=== PATIENT | female | born 1965 | race Caucasian/White ===

== ENCOUNTER 2020-03-01 13:21 | Outpatient (REF) | payer OTHER, SELFPAY | END 2020-03-01 13:22 | disposition home or self-care (01) | LOC: HO.LAB 13:21 | PROVIDERS: Visit Provider Internal Medicine | DX: Z20.828 Contact with and (suspected) exposure to other viral communicable diseases (principal) | CPT/HCPCS: C9803; U0003 ==

== ENCOUNTER 2020-05-22 08:30 | Emergency (ER) | payer OTHER, SELFPAY ==
--- NOTE | ~2020-05-22 | XR_ITS ---
EXAMINATION: XR TOES, RIGHT CLINICAL INFORMATION: Pain post fall COMPARISON: None TECHNIQUE: 3 views of the right great toe were obtained. FINDINGS: There is a nondisplaced fracture of the lateral distal phalanx of the great toe intra-articular with the IP joint. No other fracture is seen. Joint spaces are otherwise normal. Soft tissues are normal. XR/XR toe RT min 2V IMPRESSION: Nondisplaced fracture of the lateral distal phalanx of the great toe intra-articular with the IP joint.
[2020-05-22 08:33] VITALS: BP 148/91; PULSE 79; RESP 18; TEMP 36.6; O2SAT 99; BMI 24.3
--- NOTE | 2020-05-22 09:10 | ED_ITS ---
HPI - Fall General Chief Complaint: Fall <EBEN Pelaez - Last Filed: 05/22/20 10:06> Stated Complaint: fall - toe injury - work related <EBEN Pelaez - Last Filed: 05/22/20 10:06> Time Seen by Provider: 05/22/20 08:58 <EBEN Pelaez - Last Filed: 05/22/20 10:06> Source: patient <EBEN Pelaez - Last Filed: 05/22/20 10:06> Mode of arrival: ambulatory <EBEN Pelaez - Last Filed: 05/22/20 10:06> Limitations: no limitations <EBEN Pelaez - Last Filed: 05/22/20 10:06> History of Present Illness HPI Narrative: 55 y/o female presenting with right great toe pain after she slipped and fell outside on her way into work. She thinks she kicked a curb causing her to fall. No dizziness prior to fall. No LOC or head strike. No other injuries. She is able to ambulate but with some discomfort. <EBEN Pelaez - Last Filed: 05/22/20 10:06> MD complaint: fall <EBEN Pelaez - Last Filed: 05/22/20 10:06> Onset (ago): hour(s) (1) <EBEN Pelaez - Last Filed: 05/22/20 10:06> Fall from: standing <EBEN Pelaez - Last Filed: 05/22/20 10:06> Fall witnessed: yes, by bystander <EBEN Pelaez - Last Filed: 05/22/20 10:06> Place fall occurred: work <EBEN Pelaez - Last Filed: 05/22/20 10:06> Loss of consciousness: none <EBEN Pelaez - Last Filed: 05/22/20 10:06> Prolonged down time: no <EBEN Pelaez - Last Filed: 05/22/20 10:06> Symptoms prior to fall: none <EBEN Pelaez - Last Filed: 05/22/20 10:06> Context: tripped/slipped <EBEN Pelaez Last Filed: 05/22/20 10:06> Location of injury - extremities: right: foot (great toe) <EBEN Pelaez Last Filed: 05/22/20 10:06> Severity: moderate <EBEN Pelaez Last Filed: 05/22/20 10:06> Quality: sharp and aching <EBEN Pelaez Last Filed: 05/22/20 10:06> Associated symptoms (after fall): denies <EBEN Pelaez - Last Filed: 05/22/20 10:06> Related Data Home Medications: Previous Rx's Medication Instructions Recorded ibuprofen 600 mg PO Q8H PRN #20 tab 05/22/20 <EBEN Pelaez Last Filed: 05/22/20 10:06> Allergies/Adverse Reactions: Allergies Allergy/AdvReac Type Severity Reaction Status Date / Time Penicillins [PENICILLINS] Allergy Mild HIVES Unverified 12/14/19 16:16 penicillin V Allergy Unknown hives Unverified 01/03/18 00:00 <EBEN Pelaez Last Filed: 05/22/20 10:06> Review of Systems Review of Systems: Constitutional: No Fever, No Chills Cardiovascular: No Chest Pain, No SOB Respiratory: No Cough, No Sputum Gastrointestinal: No Nausea, No Vomiting, No Diarrhea, No abdominal Pain Musculoskeletal: + joint pain, No Myalgias Skin: No Skin Lesions, No rash Neuro: No Weakness, No Numbness, No Dizziness, No Headache Heme/Lymph: No Bruising, No Lymphadenopathy <EBEN Pelaez Last Filed: 05/22/20 10:06> [facility] Past Medical History Attestation statement: The following information was validated with the patient. 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 Oriented X3. No acute distress. HEENT: normal inspection CVS: Normal heart rate and rhythm. Pulses normal. Respiratory: No respiratory distress. Skin: Skin warm and dry. Normal skin color. Normal skin turgor. No rashes. Extremities: right foot with normal inspection, right great toe with painful flexion, no ecchymosis or deformity. NV intact distally. Neuro: Oriented X 3. No motor deficit. No sensory deficit. <EBEN Pelaez - Last Filed: 05/22/20 10:06> Vital Signs: Last Vital Signs Temp 98 F 05/22/20 08:33 Pulse 79 05/22/20 08:33 Resp 18 05/22/20 08:33 BP 148/91 H 05/22/20 08:33 Pulse Ox 99 05/22/20 08:33 Body Mass Index 24.3 <Mejia Garcia MD - Last Filed: 06/11/20 07:19> Course Course Course Narrative: Right great toe pain after mechanical fall. XR showing fracture. Placed in walking post-op shoe and she is comfortable and can ambulate well. Will have her f/u with Ortho. Stable for d/c. <EBEN Pelaez - Last Filed: 05/22/20 10:06> I have reviewed the chart <Mejia Garcia MD - Last Filed: 06/11/20 07:19> Discharge Plan Discharge Clinical Impression: Fracture of toe, closed <EBEN Pelaez - Last Filed: 05/22/20 10:06> Patient Disposition: Home, Self-Care <EBEN Pelaez - Last Filed: 05/22/20 10:06> Instructions: Toe Fracture (ED) <EBEN Pelaez - Last Filed: 05/22/20 10:06> Additional Instructions: You may bear weight as tolerated. Rest, ice and elevate your foot when possible. Follow up with Orthopedics. <EBEN Pelaez - Last Filed: 05/22/20 10:06> Prescriptions: New ibuprofen 600 mg tablet 600 mg PO Q8H PRN (Reason: pain) Qty: 20 RF: 0 <EBEN Pelaez - Last Filed: 05/22/20 10:06> Referrals: [facility] [Provider Group] - 2 days Jose Guadalupe Cortez MD [Physician] - 2 days (great toe fracture intra-articular w/ IP joint) <EBEN Pelaez - Last Filed: 05/22/20 10:06> Stand Alone Forms: Work/School Release <EBEN Pelaez - Last Filed: 05/22/20 10:06> Interventions: ED Discharge Assessment Last Done: 05/22/20 10:23 <EBEN Pelaez - Last Filed: 05/22/20 10:06> Discharge Date/Time: 05/22/20 10:25 <EBEN Pelaez - Last Filed: 05/22/20 10:06>
== END 2020-05-22 10:25 | disposition home or self-care (01) ==
PROVIDERS: Emergency Provider Emergency Medicine; PCP Physician Assistant
DX: S92.424A Nondisplaced fracture of distal phalanx of right great toe, initial encounter for closed fracture (principal); W01.198A Fall on same level from slipping, tripping and stumbling with subsequent striking against other object, initial encounter; Y93.01 Activity, walking, marching and hiking; Y92.9 Unspecified place or not applicable; Y99.0 Civilian activity done for income or pay
CPT/HCPCS: 73660; 99283

== ENCOUNTER → 2020-05-23 12:43 | Outpatient (BNVA) | payer OTHER, SELFPAY | PROVIDERS: PCP Physician Assistant; Visit Provider Physician Assistant | DX: Z13.89 Encounter for screening for other disorder (principal) | CPT/HCPCS: 99202 ==

== ENCOUNTER 2022-12-14 16:08 | Outpatient (REF) | payer OTHER, SELFPAY ==
[2022-12-14 17:36] LABS: MANUAL DIFF FLAG NO
[2022-12-14 17:43] LABS: Basophils Percent Auto 0.7 % (0-2); Eosinophils Absolute Auto 0.1 X10*3/uL (0.0-0.4); Eosinophils Percent Auto 2.2 % (0-4); Hematocrit 38.8 % (37.0-47.0); Hemoglobin 12.4 g/dl (12.0-16.0); Imm Gran Abs Auto 0.03 X10*3/uL (0.00-0.03); Imm Gran Pct Auto 0.5 % (0.0-0.4); Lymphocytes Absolute Auto 2.1 X10*3/uL (1.2-4.9); Lymphocytes Percent Auto 37.5 % (20-40); Mean Corpuscular Hemoglobin 29.5 pg (27.0-33.0); Mean Corpuscular Volume 92.4 fL (80.0-98.0); Mean Platelet Volume 10.1 fL (9.4-12.3); Monocytes Absolute Auto 0.4 X10*3/uL (0.1-1.2); Monocytes Percent Auto 7.3 % (2-11); Neutrophils Absolute Auto 2.8 x10*3/uL (2.0-8.3); Neutrophils Percent Auto 51.8 % (45-73); Platelet Count 264 X10*3/uL (160-400); Red Cell Distribution Width 13.2 % (11.0-16.0); White Blood Count 5.5 X10*3/uL (4.8-10.8)
[2022-12-14 18:38] LABS: Alanine Aminotransferase 14 U/L (0-31); Albumin Level 4.2 g/dL (3.5-5.0); Alkaline Phosphatase 74 U/L (39-117); Anion Gap 11 (12-20); Aspartate Amino Transferase 21 U/L (5-31); Bilirubin Total 0.1 mg/dL (0.0-1.0); Blood Urea Nitrogen 24 mg/dL (9-16); C Reactive Protein 0.13 mg/dL (< or = 0.50); Calcium 9.2 mg/dL (8.4-10.2); Carbon Dioxide 27 mmol/L (22-29); Chloride 105 mmol/L (96-108); Estimated Glomerular Filt Rate > 60; Glucose Random 82 mg/dL (60-115); Iron 53 mcg/dL (30-160); Percent Iron Saturation 20 % (15-50); Sodium 139 mmol/L (135-145); Total Iron Binding Capacity 265 mcg/dL (228-428); Total Protein 6.9 g/dL (6.5-8.0); Unsaturated Iron Binding 212 ug/dL; Uric Acid 5.1 mg/dL (2.4-5.7)
[2022-12-14 18:53] LABS: Rheumatoid Factor < 13.0 IU/mL (<15.0)
[2022-12-14 18:55] LABS: Ferritin 27 ng/mL (10-250); Vitamin D 25-OH Total 88.8 ng/mL (>30)
[2022-12-14 19:12] LABS: Erythrocyte Sedimentation Rate 5 MM/HR (0-20)
[2022-12-14 19:15] LABS: Folate 10.3 ng/mL (> or = 4.0); Vitamin B12 671 pg/mL (200-900)
[2022-12-16 13:23] LABS: Anti DNA DS Antibody <1 IU/mL
[2022-12-16 15:29] LABS: Cyclic Citrullinated Peptide <16 UNITS
[2022-12-18 13:42] LABS: Anti Nuclear Antibody Screen NEGATIVE (NEGATIVE)
== END 2022-12-14 16:09 | disposition home or self-care (01) ==
LOC: HO.MANLDS 16:08
PROVIDERS: Visit Provider Physician Assistant
DX: Z00.00 Encounter for general adult medical examination without abnormal findings (principal); M25.512 Pain in left shoulder
CPT/HCPCS: 36415; 80053; 82306; 82607; 82728; 82746; 83540; 84550; 85025; 85652; 86038; 86140; 86200; 86225; 86431

== ENCOUNTER 2022-12-24 15:04 | Outpatient (REF) | payer OTHER, SELFPAY ==
[2022-12-28 17:03] LABS: Homocysteine 7.7 umol/L (<10.4)
== END 2022-12-24 15:05 | disposition home or self-care (01) ==
LOC: HO.LAB 15:04
PROVIDERS: PCP Internal Medicine; Visit Provider Physician Assistant
DX: M25.512 Pain in left shoulder (principal)
CPT/HCPCS: 36415; 83090

== ENCOUNTER 2025-01-19 06:50 | Outpatient (REF) | payer OTHER, SELFPAY ==
--- OUTSIDE RECORDS SUMMARY | 2025-01-19 06:55 | XMS_ITS | Data Portability ---
Author Organization [facility] Telehealth Patient Home Address [address] [place] [address] Assessment No assessment recorded. Plan of Treatment Reminders Order Date Submit Date Provider Last Modified By Organization Details Last Modified Time Details Appointments ANNUA L EXAM 2025 03:30P M EBEN EDWARDS Not available Not available Not available Lab CBC w/ auto diff 2023 024 [facility] (Outpatient), [address] [place] [address], [id number], 01/19/2024 10:25:35 CMP, serum or plasm a 2023 024 [facility] (Outpatient), [address] [place] [address], [id number], 12/24/2023 16:05:48 lipid panel , blood 2023 024 [facility] (Outpatient), [address] [place] [address], [id number], 01/19/2024 10:52:58 TSH + free T4, serum 2023 024 [facility] (Outpatient), [address] [place] [address], [id number], 01/19/2024 11:12:05 hemog lobin A1c, QN, blood 2023 024 [facility] (Outpatient), [address] [place] [address], [id number], 01/19/2024 10:40:59 toñito ic, blood 2023 024 [facility] (Outpatient), [address] [place] [address], [id number], 01/20/2024 22:01:36 uric acid, serum or plasm a 2022 023 [facility], [address] [place] [address], [id number], 12/14/2022 15:51:11 ESR (eryt hrocy te sedim entat ion rate) , blood 2022 023 [facility], [address] [place] [address], [id number], 12/14/2022 15:51:11 C-vilma ctive prote in, quant itati ve, serum or plasm a 2022 023 [facility], [address] [place] [address], [id number], 12/14/2022 15:51:11 vitam in D, 25-hy droxy , total , serum 2022 023 [facility], [address] [place] [address], [id number], 12/14/2022 15:51:11 CLEMENTINA + rf (anti nucle ar antib odies + rheum atoid facto r), quant itati ve, serum 2022 023 [facility], [address] [place] [address], [id number], 12/21/2022 11:30:11 vitam in B12 + folat e, serum or blood 2022 023 [facility], [address] [place] [address], [id number], 12/14/2022 15:51:11 dsDNA Ab, serum 2022 023 [facility], [address] [place] [address], [id number], 12/14/2022 15:51:11 ccp (cycl ic citru llina sheridan pepti de) igg, serum 2022 023 [facility], [address] [place] [address], [id number], 12/17/2022 12:46:46 homoc ystei ne, serum or plasm a 2022 023 [facility], [address] [place] [address], [address], 12/29/2022 12:13:11 vitam in D, 25-hy droxy , total , serum 2022 023 [facility], [address] [place] [address], [address], 12/14/2022 15:51:11 CMP, serum or plasm a 2022 023 [facility], [address] [place] [address], [id number], 12/15/2022 12:34:33 CBC w/ auto diff 2022 023 [facility], [address] [place] [address], [address], 12/14/2022 15:51:35 iron + TIBC + patel tin, serum 2022 023 [facility], [address] [place] [address], [address], 12/14/2022 15:52:04 Referral gastr dejah dominguez ist refer ral 2024 025 [email or web address] [facility], [address], [place], [address], 12/27/2024 08:22:43 rheum atolo gist refer ral 2022 023 [facility], [address], [place], [address], 12/15/2022 08:25:39 Procedures None recor ded. Surgeries None recor ded. Imaging None recor ded. Medication Orders gabap entin 100 mg capsu le 2023 024 [id number], [address] [place], [address], 12/24/2023 16:11:11 loraz epam 0.5 mg table t 2022 023 [id number], [address] [place], [address], 06/08/2022 10:52:04 butal bital -acet amino phen- caffe ine 50 mg-32 5 mg-40 mg table t 2022 023 [id number], [address] [place], [address], 06/08/2022 10:51:06 Patient TargetsNo targets recorded. Patient InstructionsNo instructions recorded. 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 [facility] [address], [place], [address], 05/11/2023 14:05:22 Result Notes None recorded. Problems Name Problem SNOMED Code Status Onset Date Resolution Date Notes Provider Name and Address Organization Details Recorded Time Pain of left shoulder joint 350304813632 92747 Active 2022 EBEN EDWARDS [address] [place], [address], [facility] 3 10:45:05 Pain of knee region 4068237207 Active 2022 EBEN EDWARDS [address] [place], [address], [facility] 3 10:45:31 Pelvic floor dysfuncti on 523579657 Active 2022 EBEN EDWARDS [address] [place], [address], [facility] 3 10:47:10 Pain of right knee joint 975311858184 100 Active 2022 EBEN EDWARDS [address] [place], [address], [facility] 3 10:47:52 Migraine 09585928 Active 2022 EBEN EDWARDS [address] [place], [address], [facility] 3 10:49:32 Generaliz ed anxiety disorder 51860544 Active 2022 EBEN EDWARDS [address] [place], [address], [facility] 3 10:51:07 Malignant neoplasm of breast 059107063 Active 2022 EBEN EDWARDS [address] [place], [address], [facility] 3 10:54:44 Pain of multiple joints 28514307 Active 2022 EBEN EDWARDS [address] [place], [address], [facility] 3 15:46:49 Swelling of lower leg 561124996 Active 2022 EBEN EDWARDS [address] [place] [address], [address], [facility] 3 15:58:52 Muscle spasm of cervical muscle of neck 859363167790 Active 2024 EBEN EDWARDS [address] [place] [address], [address], [facility] 5 10:56:15 Neck pain 30088737 Active 2024 EBEN EDWARDS [address] [place] [address], [address], [facility] 5 10:32:10 Esophagea l dysphagia 41861335 Active 2024 EBEN EDWARDS [address] [place] [address], [address], [facility] 5 16:06:10 Problem Notes None recorded. Procedures Surgical History Date Name Laterality Status Provider Name and Address Organization Details Recorded Time reconstruction of anterior cruciate ligament of knee joint completed EBEN EDWARDS [address] [place] [address], [address], [facility] 06/08/2022 10:52:19 D&c of cervical stump completed EBEN EDWARDS [address] [place] [address], [address], [facility] 06/08/2022 10:52:41 excision of lipoma completed EBEN EDWARDS [address] [place] [address], [address], [facility] 06/08/2022 10:52:49 extraction of wisdom tooth completed EBEN EDWARDS [address] [place] [address], [address], [facility] 06/08/2022 10:53:11 screening for malignant neoplasm of breast completed EBEN EDWARDS [address] [place] [address] [place], [address], [facility] 06/08/2022 10:53:56 Imaging Results None recorded. Procedure Notes None recorded. Medical Equipment None Reported. Allergies Allergen ID Allergen Name Allergen Category Reaction Reaction Severity Criticality Documentation Date Start Date Code Code System Note Provider Name and Address Organization Details Recorded Time 6507 Product containin g penicilli n (product) medicatio n rash Not available Not available 06/08/2022 67985 8001 SNOMED neopr ine EBEN EDWARDS [address] [place], [address], [facility] 3 10:40:44 7292 Neoprene medicatio n rash Not available Not available 12/14/2022 EBEN EDWARDS [address] [place], [address], [facility] 15:39:20 Medications Name Sig Start Date Stop Date Status Note LastModified by Organization Details LastModified Time diclofenac 3% / baclofen 2% / gabapentin 6% / bupivacaine hcl 1% Apply 1-3 grams to the affected area 3-4 times daily (BOTH knees) active Not Available Not Available No t Available cyclobenzap rine 10 mg tablet TAKE 1 TABLET BY MOUTH THREE TIMES A DAY NEEDED FOR 14 DAYS active Not Available Not Available No t Available meloxicam 15 mg tablet TAKE 1 TABLET BY MOUTH EVERY DAY active Not Available Not Available No t Available butalbital- acetaminoph en-caffeine 50 mg-325 mg-40 mg tablet TAKE 1 TABLET BY MOUTH EVERY 6 HOURS active Not Available Not Available No t Available lorazepam 0.5 mg tablet TAKE 1 TABLET BY MOUTH EVERY DAY NEEDED 2024 active Not Available Not Available Not Avai lable baclofen 10 mg tablet Take 1 tablet 3 times a day by oral route as needed for 14 days. 04/18 completed Not Available Not Available Not Available Tylenol 325 mg tablet 2000mg daily; OTC active Not Available Not Available No t Available mupirocin 2 % topical ointment APPLY TO SURGICAL SITE TWICE A DAY FOR 7-14 DAYS OR UNTIL FOLLOW UP APPOINTME NT 06/08 completed Not Available Not Available Not Available gabapentin 100 mg capsule TAKE 1 CAPSULE BY MOUTH EVERY DAY IN THE EVENING active Not Available Not Available No t Available estradiol 0.01% (0.1 mg/gram) vaginal cream PLACE 0.5 GRAMS INTRAVAGI CELESTE AT NIGHT 3 TIMES A WEEK AND THEN TWICE WEEKLY THEREAFTE R. active Not Available Not Available No t Available albuterol sulfate HFA 90 mcg/actuati on aerosol inhaler INHALE 2 PUFFS INTO THE LUNGS EVERY 4 HOURS NEEDED FOR WHEEZING OR SHORTNESS OF BREATH/DY SPNEA active Not Available Not Available No t Available Benadryl Allergy 2 tablets every evening for sleep; OTC active Not Available Not Available No t Available Sudafed 1 tablet in AM for allergies ; OTC active Not Available Not Available No t Available Fioricet active Not Available Not Avai lable Not Available Vitals Date Recorded Body height Body mass index (BMI) Body weight Oxygen saturation Oxygen saturation in Arterial blood by Pulse oximetry Heart rate Systolic And Diastolic Provider Name and Address Organization Details Last Updated DateTime 3 167.64 cm 28.4 kg/m2 91315.6 2 g 98 % 98 % 88 /min 100/64 mm[Hg] Rhianna Montelongo [facility] 3 10:33:10 Date Recorded Body height Heart rate Oxygen saturation Oxygen saturation in Arterial blood by Pulse oximetry Body mass index (BMI) Body weight Systolic And Diastolic Provider Name and Address Organization Details Last Updated DateTime 3 167.64 cm 77 /min 95 % 95 % 28.1 kg/m2 82722.0 7 g 118/79 mm[Hg] EBEN EDWARDS [address] [place], [address] [place] [address] [facility] 3 15:43:05 Date Recorded Body height Body mass index (BMI) Body weight Heart rate Oxygen saturation Oxygen saturation in Arterial blood by Pulse oximetry Systolic And Diastolic Provider Name and Address Organization Details Last Updated DateTime 4 167.64 cm 28.8 kg/m2 59523.8 8 g 74 /min 97 % 97 % 124/86 mm[Hg] Carla Horton [facility] 4 15:53:30 Date Recorded Body weight Body mass index (BMI) Body height Heart rate Oxygen saturation Oxygen saturation in Arterial blood by Pulse oximetry Systolic And Diastolic Provider Name and Address Organization Details Last Updated DateTime 5 58539.2 6 g 28.4 kg/m2 167.64 cm 70 /min 98 % 98 % 128/70 mm[Hg] Yumiko Tony [facility] 5 15:40:08 Social History Question Answer Notes LastModified by Organizat ion Details LastModified Time Tobacco Smoking Status Never Smoker Rhianna kaminski [facility] 06/08/2022 10:27:04 Do You Have An Advance Directive? No Information not available 06/08/2022 Are You Blind Or Do You Have Difficulty Seeing? No Information not available 06/08/2022 What Is Your Level Of Caffeine Consumption? Moderate Information not available 06/08/2022 In The 14 Days Before Symptom Onset, Have You Had Close Contact With A Laboratory-confir med COVID-19 While That Case Was Ill? No Information not available 06/08/2022 In The 14 Days Before Symptom Onset, Have You Had Close Contact With A Person Who Is Under Investigation For COVID-19 While That Person Was Ill? No Information not available 06/08/2022 Have You Been To An Area Known To Be High Risk For COVID-19? No Information not available 06/08/2022 Are You Deaf Or Do You Have Serious Difficulty Hearing? No Information not available 06/08/2022 What Type Of Diet Are You Following? REGULAR Information not available 06/08/2022 What Is The Highest Grade Or Level Of School You Have Completed Or The Highest Degree You Have Received? [id number] Information not available 06/08/2022 Are There Any Guns Present In Your Home? No Information not available 06/08/2022 What Was The Date Of Your Most Recent Tobacco Screening? 12/26/2024 [email or web address] Information not available 12/26/2024 How Many Children Do You Have? 2 Boy And Girl Information not available 06/08/2022 Do You Use Your Seat Belt Or Car Seat Routinely? Yes Information not available 06/08/2022 Are You Sexually Active? No Information not available 06/08/2022 Do You Have Smoke And Carbon Monoxide Detectors In Your Home? Yes Information not available 06/08/2022 Are You Passively Exposed To Smoke? Yes Information no t available 06/08/2022 Do You Use Sunscreen Routinely? Yes Information not available 06/08/2022 Do You Have Difficulty Walking Or Climbing Stairs? No Information not available 06/08/2022 Sex: Unknown Functional Status Question Answer Note LastModified by [employer] Details LastModified Time Do you use any illicit or recreational drugs? No Information not available 06/08/2022 What is your level of alcohol consumption? Occasional Information not available 06/08/2022 Are you currently employed? Yes Information not available 06/08/2022 Are you able to walk independently without assistance or assistive devices? YESWOREST Information not available 06/08/2022 Do you have difficulty doing errands alone? No Information not available 06/08/2022 Are you able to care for yourself independently? Yes Information not available 06/08/2022 Do you have difficulty dressing, bathing, grooming, or toileting? No Information not available 06/08/2022 What is your exercise level? Occasional Information not available 06/08/2022 Mental Status Question Answer Note LastModified by [employer] Details LastModified Time Do you feel stressed (tense, restless, nervous, or anxious, or unable to sleep at night)? [id number] Information not available 06/08/2022 Do you have difficulty concentrating, remembering or making decisions? No Information no t available 06/08/2022 Family History Relationship Description Onset Age of this Age Resolved Age Notes LastModified by Organization Details LastModified Time Father No current problems or disability [email or web address] Not available 12/26 16:19:22 Mother No current problems or disability [email or web address] Not available 12/26 16:19:22 Notes:patient is adopted; no know fam hx Medical History No medical history recorded. Gynecological HistoryNo gynecological history recorded. Obstetrics History GPAL:G 0 P 0 0 0 0 Past Encounters Encounter ID Performer Location Encounter Start Date Encounter Closed Date Diagnosis/Indication Diagnosis SNOMED-CT Code Diagnosis ICD10 Code Diagnosis IMO Codes Diagnosis Note [id number] 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 [address] [facility] [place] [address] 12/14/2022 15:27:54 12/14/2022 16:05:19 Active or passive immunization 917524908 Z23 up to date Adult heal th examination 213382740 Z00.00 will set up routine lab work Generalize d anxiety disorder 13268483 F41.1 will set up with refill ativan Malignant neoplasm of breast 213557578 C50.919 stablefoll ows with instructor adjunct surgical technician Migraine 40188115 G43.00 9 needs refill Pelvic tatyana or dysfunction 322590159 M62.9 will check PT places Pain of mu ltiple joints 12085055 M25.512 agreed to lab work and rheum referral Swelling of lower leg 44 4269069 R22.40 will set up with stocking [id number] [facility] [address] [facility] [place] [address] 12/24/2023 15:48:13 12/24/2023 16:21:07 Active or passive immunization 285458737 Z23 up-to-date Adult heal th examination 150875600 Z00.00 will set up routine lab work Depression screening 171 036083 Z13.31 SCREENING NEGATIVE Exposure to arsenic 1609 627499 0433248 Z77.010 high amounts in well water when tested Migraine 46276674 G43.00 9 needs refill Vitamin D deficiency 347 64026 E55.9 [id number] DO Gopal Isabel [facility] [address] [facility] [place] [address] 12/26/2024 15:28:27 12/27/2024 08:22:43 Depression screening 609690324 Z13.31 SCREENING NEGATIVE Esophageal dysphagia 408 99375 R13.19 8211 General ex amination of patient 981962249 Z00.00 507521 will set up routine lab work Health Concerns Section Related Observation LastModified by Organization Detai ls LastModified Time None Recorded Concern Status LastModified by Organization Details LastModified Time None Recorded Advance Directives Directive N: Payers Insurance Date Sequence Insurance Name Policy Number Policy Burch Covered Member ID Burch Member ID Guarantor Name 12/20/2024 1 [employer] INDEMNITY PLAN (INDEMNITY) [id number] 4 Reean A D'Addario [id number] Reena Daddario 12/27/2024 1 [employer] - PHCS (PPO) [id number] 4 Reena A D'Addario [id number] Reena Daddario Notes Date Note Type Note Provider Name a nd Address Organization Details Recorded Time 3 text/html ROS as noted in the HPI NPV: allergies: PCN, rash per patientno other known allergies PMH:the patient reports that she wakes up in the middle of the night one to two times per month coughing (like acid reflux) the patient reports that pills sometimes get stuck; some foodsthe patient would hold on any evaluation now right knee pain, related to overuse since her left knee had an ACL tearleft knee is good left shoulder pain; will call when it gets bad; will work up when it happens again sees someone for pelvic floor weakness, sees a specialistthe patient and I will talk about getting PT, will see how does it meds:adjusted in chartneeds refills on foraset and ativan no changes anxiety mood is stable EBEN EDWARDS [address] [facility], [place], [address], [facility] 06/08/2022 11:02:50 09/18/202 3 text/html Annual WellnessReported by PatientSocial/Behavio ral HistoryFor diet and nutrition, patient reportshealthy diet,discussed vitamin and supplement use,discussed portion control,discussed maintaining calcium balance, anddiscussed diet improvement. For fracture risk, patient reportsno history of fractures,no recent explained fracture,no sudden unexplained fractures, andno previous musculoskeletal injuries. For physical activity, patient reportsexercises on a regular basis,recent increase in physical activity, andgood physical condition. For additional lifestyle factors, patient reportsno tobacco use,no alcohol intake, andstopped drinking alcohol.Mental Status:For depression risk, patient reportsnever feels sad, empty, or tearful,no loss of interest in activities,no significant changes in weight,no sleep disturbances or insomnia,no agitation,no loss of energy,no feelings of worthlessness or guilt,no thoughts of suicide,no history of depression, andno history of mood disorders.Functional AbilityFor hearing, patient reportsno loss of hearing. For vision, patient reportsno vision problems. recent cortisone injection in her shoulder which worked well EBEN EDWARDS [address] [place] [address], [address], [facility] 12/14/2022 16:03:49 4 text/html Annual WellnessReported by PatientSocial/Behavio ral HistoryFor diet and nutrition, patient reportshealthy diet,discussed vitamin and supplement use,discussed portion control,discussed maintaining calcium balance, anddiscussed diet improvement. For fracture risk, patient reportsno history of fractures,no recent explained fracture,no sudden unexplained fractures, andno previous musculoskeletal injuries. For physical activity, patient reportsexercises on a regular basis,recent increase in physical activity, andgood physical condition. For additional lifestyle factors, patient reportsno tobacco useanddrinks alcohol (mild-moderate).Menta l Status:For depression risk, patient reportsnever feels sad, empty, or tearful,no loss of interest in activities,no significant changes in weight,no sleep disturbances or insomnia,no agitation,no loss of energy,no feelings of worthlessness or guilt,no thoughts of suicide,no history of depression, andno history of mood disorders.Functional AbilityFor hearing, patient reportsno loss of hearing. For vision, patient reportsno vision problems. saw Dr. Ibarra for rheumstarted meloxicam pessary with Dr. Lucas ([facility])changed every 3 mossuggested pelvic floor PT, is thinking about it her well-water tested found to have high levels of arsenicagreed to blood test to check her levelsfeels fine, no acute illnesses sees an timber trimmer for her neckhad an impingement, doing great now after cortisone injection EBEN EDWARDS [address] [place], [address], [facility] 12/24/2023 16:18:06 5 text/html Annual WellnessReported by PatientSocial/Behavio ral HistoryFor diet and nutrition, patient reportshealthy diet,discussed vitamin and supplement use,discussed portion control,discussed maintaining calcium balance, anddiscussed diet improvement. For fracture risk, patient reportsno history of fractures,no recent explained fracture,no sudden unexplained fractures, andno previous musculoskeletal injuries. For physical activity, patient reportsexercises on a regular basis,recent increase in physical activity,good physical condition,discussed weightbearing activities, anddiscussed exercise habits. For additional lifestyle factors, patient reportsno tobacco use.Mental Status:For depression risk, patient reportsnever feels sad, empty, or tearful,no loss of interest in activities,no significant changes in weight,no sleep disturbances or insomnia,no agitation,no loss of energy,no feelings of worthlessness or guilt,no thoughts of suicide,no history of depression, andno history of mood disorders.Functional AbilityFor hearing, patient reportsno loss of hearing. For vision, patient reportsno vision problems.ROS as noted in the HPI numbness and tingling of the toes, only in the morningprobably her very old mattressrecom new one given suggestion for gi referral for endo scope EBEN EDWARDS [address] [facility], [place], [address], [facility] Internal Medicine 12/26/2024 16:33:37 OBGyn Episode No OBEpisode recorded.
--- OUTSIDE RECORDS SUMMARY | 2025-01-19 06:55 | XMS_ITS | Encounter Summary ---
Author Organization [facility] Address [address] [facility] [address] [place] [address] Phone Care Team Providers Care Linux Unix Administrator Name Role Phone Eboni Anaya LAMP STACK DEVELOPER Unavailable [phone] Rupa Bee MD Unavailable [phone] Scott Goodwin DO Unavailable [phone] Gretel Johnson NP Unavailable [phone] Heather Perez DO Unavailable [phone] Elsy Garrido LAMP STACK DEVELOPER Unavailable [phone] Vaughn Watson MD Unavailable [phone] Scott Goodwin DO Primary Care Provider [phone] Camila Pang NP Primary Care Provider Connie Gannon Primary Care Provide r Tima Cuello MD Unavailable [phone] Adali Gutierrez MD Primary Care Provid er Sonia Mera Primary Care Provider [phone] Reason for Referral * MRI/CAT Scan - Closed Specialty Diagnoses / Procedures Referred By Contac t Referred To Contact Radiology Diagnoses Numbness in both legs Spinal stenosis, unspecified spinal region Hyperreflexia Procedures MRI Cervical Spine Tima Berrios MD Phone: tel: fax: [email or web address] Referral ID Status Reason Start Date Expiration Date Visits Re quested Visits Authorized [id number] Closed 08/10/2018 10/09/2018 1 1 Encounter Details Date Type Department Care Team (Late st Contact Info) Description 05/05/2018 Ancillary Orders Virtual Department [address] [place] [address] Tima Berrios MD [address] [place] [address], [address] [place], [place] [id number] [email or web address] Numbness in both legs; Spinal stenosis, unspecified spinal region; Hyperreflexia Social History Tobacco Use Types Packs/Day Years Used Date Smoking Tobacco: Never Smokeless Tobacco: Never Alcohol Use Standard Drinks/Week Comments Yes 2 (1 standard drink = 0.6 oz pur e alcohol) 3 times weekly Comments Unknown Sex and Gender Information Value Date Recorded Sex Assigned at Female 07/27/2019 9:29 AM EDT Legal Sex Female 9:41 PM EDT Gender Identity Female 07/27/2019 9:29 AM EDT Sexual Orientation Straight 07/27/2019 9: 29 AM EDT documented as of this encounter Plan of Treatment Not on file documented as of this encounter Results * MRI CERVICAL SPINE (BONE) WITHOUT CONTRAST (09/01/2018 2:53 PM EDT) Anatomical Region Laterality Modality C-spine Magnetic Resonan ce 09/01/2018 6:33 PM EDT Impressions 09/02/2018 9:37 AM EDT Multilevel degenerative changes with severe neural foraminal narrowing bilaterally at C3-4 and on the right at C4-5. Diffuse extensive facet arthropathy. No high-grade spinal canal stenosis. POS - [id number] Edited by: Mere Do on 09/02/2018 8:51 AM Narrative 09/02/2018 9:37 AM EDT HISTORY: Numbness and tingling in both toes for 2 years. Hyperreflexia. Possible spinal canal stenosis. History of breast carcinoma in 2017 COMPARISON: None CORRELATION: None TECHNIQUE: Exam performed on a 1.5 Tita high-field MRI scanner. Sagittal T1, T2 and STIR, axial T2* gradient echo and 3-D bright fluid sequences were obtained. FINDINGS: No cord signal abnormality detected. Low-lying cerebellar tonsils. No compression deformities. 1.4 cm bright T1 signal lesion within T1 has coarsened trabeculae and likely represents a hemangioma. No endplate changes concerning for infection. C2-3: Mild disc bulging, bilateral uncovertebral spurring, and moderate to severe bilateral facet hypertrophy. No significant neural foraminal narrowing or spinal canal stenosis. C3-4: No significant disc bulging. Bilateral uncovertebral spurring and severe bilateral facet arthropathy greater on the left. Severe bilateral neural foraminal narrowing with mass effect on the exiting nerve roots. No significant spinal canal stenosis. C4-5: Mild generalized disc bulging. Bulky right uncovertebral osteophytes and minimal uncovertebral spurring on the left. Severe facet arthropathy on the right and at least moderate on the left. Right neural foramen is severely narrowed with impingement on the exiting nerve root. No significant left neural foraminal narrowing. Mild narrowing of the spinal canal. Slight anterolisthesis of C4 likely secondary to facet disease. C5-6: Mild disc bulging. Bilateral uncovertebral osteophytes, less prominent than at L4-5. Severe facet arthropathy on the right at least moderate on the left. Mild to moderate right and mild left neural foraminal narrowing. No significant spinal canal stenosis. C6-7: Small central disc protrusion with annular tearing which partially effaces the anterior subarachnoid space. Bulky bilateral uncovertebral osteophytes and severe right and moderate left facet arthropathy. Neural foramina are mildly narrowed. Mild to moderate narrowing of the spinal canal. C7-T1: No prominent disc bulging. Bilateral uncovertebral spurring and bilateral facet arthropathy greater on the left. Mild bilateral neural foraminal narrowing. No significant spinal canal stenosis. At T1-2 there may be moderate neural foraminal narrowing secondary to facet arthropathy. Procedure Note Agueda Edgar MD - 09/02/2018 HISTORY: Numbness and tingling in both toes for 2 years. Hyperreflexia.Possible spinal canal stenosis. History of breast carcinoma in 2017 COMPARISON: None CORRELATION: None TECHNIQUE: Exam performed on a 1.5 Tita high-field MRI scanner. SagittalT1, T2 and STIR, axial T2* gradient echo and 3-D bright fluid sequenceswere obtained. FINDINGS: No cord signal abnormality detected. Low-lying cerebellar tonsils. No compression deformities. 1.4 cm bright T1 signal lesion within T1 hascoarsened trabeculae and likely represents a hemangioma. No endplatechanges concerning for infection. C2-3: Mild disc bulging, bilateral uncovertebral spurring, and moderateto severe bilateral facet hypertrophy. No significant neural foraminalnarrowing or spinal canal stenosis. C3-4: No significant disc bulging. Bilateral uncovertebral spurring andsevere bilateral facet arthropathy greater on the left. Severe bilateralneural foraminal narrowing with mass effect on the exiting nerve roots.No significant spinal canal stenosis. C4-5: Mild generalized disc bulging. Bulky right uncovertebralosteophytes and minimal uncovertebral spurring on the left. Severe facetarthropathy on the right and at least moderate on the left. Right neuralforamen is severely narrowed with impingement on the exiting nerve root.No significant left neural foraminal narrowing. Mild narrowing of thespinal canal. Slight anterolisthesis of C4 likely secondary to facetdisease. C5-6: Mild disc bulging. Bilateral uncovertebral osteophytes, lessprominent than at L4-5. Severe facet arthropathy on the right at leastmoderate on the left. Mild to moderate right and mild left neuralforaminal narrowing. No significant spinal canal stenosis. C6-7: Small central disc protrusion with annular tearing which partiallyeffaces the anterior subarachnoid space. Bulky bilateral uncovertebralosteophytes and severe right and moderate left facet arthropathy. Neuralforamina are mildly narrowed. Mild to moderate narrowing of the spinalcanal. C7-T1: No prominent disc bulging. Bilateral uncovertebral spurring andbilateral facet arthropathy greater on the left. Mild bilateral neuralforaminal narrowing. No significant spinal canal stenosis. At T1-2 there may be moderate neural foraminal narrowing secondary tofacet arthropathy. IMPRESSION: Multilevel degenerative changes with severe neural foraminal narrowingbilaterally at C3-4 and on the right at C4-5. Diffuse extensive facetarthropathy. No high-grade spinal canal stenosis. POS - [id number] Edited by: Mere Do on 09/02/2018 8:51 AM Tima Berrios MD IMG MR XSPECIALTY Final Resu lt documented in this encounter Visit Diagnoses Diagnosis Numbness in both legs Disturbance of skin sensation Spinal stenosis, unspecified spinal region Hyperreflexia Abnormal reflex Numbness in both legs Disturbance of skin sensation Spinal stenosis, unspecified spinal region Hyperreflexia Abnormal reflex documented in this encounter Care Teams Linux Unix Administrator Relationship Specialty Start Date End Date Scott Goodwin DO [address] [place] [address] PCP - General 01/14/17 10/11/18 Camila Pang NP [address] [place] [address] [email or web address] PCP - General Family Medicine 10/12/18 08/02/19 Connie Gannon PA [address] [place] [address] [email or web address] PCP - General 08/03/19 08/28/21 Adali Gutierrez MD [address] [address] [email or web address] PCP - General Family Medicine 08/29/21 12/16/22 Sonia Mera PA [address] [place] [address] PCP - General Physician Plant Maintenance Technician 12/17/22 Eboni Anaya NP [address] [place] [address] [place] [address] Historical LMR Provider 01/13/17 2 Rupa Bee MD [address] [place] [address] [address] [place] [address] Historical LMR Provider 01/13/17 Scott Goodwin DO [address] [place] [address] Historical LMR Provider 01/13/17 Gretel Johnson NP [address] [place] [address] Historical LMR Provider 01/13/17 2 Heather Perez DO [address] [place] [address] Historical LMR Provider 01/13/17 2 Elsy Garrido NP [address] [place] [address] Historical LMR Provider 01/13/17 2 Vaughn Watson MD [address] [place] [address] Historical LMR Provider 01/13/17 2 Tima Cuello MD [address] [place] [address], [address] [place] [address] Insurance Assigned Provider Internal Medicine 08/03/19 documented as of this encounter Additional Source Comments The information contained in this document represents components of the legal health record. It is not the complete legal health record.[facility]
--- OUTSIDE RECORDS SUMMARY | 2025-01-19 06:55 | XMS_ITS | Encounter Summary ---
Author Organization [facility] Address [address] [facility] [address] [place] [address] Phone Care Team Providers Care Party Plan Salesperson Name Role Phone Eboni Anaya BUSINESS COMMUNICATIONS INSTRUCTOR Unavailable [phone] Rupa Bee MD Unavailable [phone] Scott Goodwin DO Unavailable [phone] Gretel Johnson BUSINESS COMMUNICATIONS INSTRUCTOR Unavailable [phone] Ana Heather L DO Unavailable [phone] Elsy Garrido BUSINESS COMMUNICATIONS INSTRUCTOR Unavailable [phone] Vaughn Watson MD Unavailable [phone] Camila Pang NP Primary Care Provider Connie Gannon Primary Care Provide r Tima Cuello MD Unavailable [phone] Adali Gutierrez MD Primary Care Provid er Sonia Mera Primary Care Provider [phone] Reason for Referral * MRI/CAT Scan - Closed Specialty Diagnoses / Procedures Referred By Contac t Referred To Contact Radiology Diagnoses Lumbar radiculopathy Low back pain, unspecified back pain laterality, unspecified chronicity, unspecified whether sciatica present Procedures MRI Lumbar Spine iTma Berrios MD Phone: tel: fax: mailto:[email or web address] Referral ID Status Reason Start Date Expiration Date Visits Re quested Visits Authorized [id number] Closed 01/02/2019 03/03/2019 1 1 Encounter Details Date Type Department Care Team (Latest Contact Info) Description 01/02/2019 Transcribe Orders Virtual Department [address] [place] [address] Tima Berrios MD [address] [place] [address], [address] [place] [address] [email or web address] Lumbar radiculopathy (Primary Dx); Low back pain, unspecified back pain laterality, unspecified chronicity, unspecified whether sciatica present Social History Tobacco Use Types Packs/Day Years [...] as of this encounter Results * MRI LUMBAR SPINE (NEURO) WITHOUT CONTRAST (01/11/2019 12:05 PM EDT) Anatomical Region Laterality Modality L-spine Magnetic Resonan ce 01/11/2019 12:2 8 PM EDT Impressions 01/11/2019 12:35 PM EDT 1. Multilevel degenerative changes as above. No significant disc herniation, canal or neural foraminal stenosis or nerve root compression. 2. Mild left renal atrophy. POS - [id number] Narrative 01/11/2019 12:35 PM EDT HISTORY: + RADICULOPATHY [SIGN/SX] EMG NEGATIVE COMPARISON: None. TECHNIQUE: Exam performed on a 1.5 Tita high-field MRI scanner. Sagittal T1, T2 and STIR, axial T1 and T2 sequences were obtained. MRI LUMBAR SPINE FINDINGS: Normal lordosis. Minimal L5 retrolisthesis. No compression fractures. Moderate L5-S1 disc space narrowing and mild T11-12, L2-3 and L3-4 disc space narrowing with disc desiccation. No bone marrow lesions or bone marrow edema. Conus terminates at T12-L1. Additional findings: Mild left renal atrophy. T11-12: Small broad-based left paracentral disc protrusion. L1-L2: Mild facet arthropathy. L2-L3: Mild facet arthropathy and generalized disc bulging. L3-L4: Mild facet arthropathy and generalized disc bulging. L4-L5: Mild facet arthropathy and generalized disc bulging. L5-S1: Mild facet arthropathy. Small broad-based central disc protrusion. Procedure Note Chico Solares MD - 01/11/2019 HISTORY: + RADICULOPATHY [SIGN/SX] EMG NEGATIVE COMPARISON: None. TECHNIQUE: Exam performed on a 1.5 Tita high-field MRI scanner. SagittalT1, T2 and STIR, axial T1 and T2 sequences were obtained. MRI LUMBAR SPINE FINDINGS: Normal lordosis. Minimal L5 retrolisthesis. No compression fractures.Moderate L5-S1 disc space narrowing and mild T11-12, L2-3 and L3-4 discspace narrowing with disc desiccation. No bone marrow lesions or bonemarrow edema. Conus terminates at T12-L1. Additional findings: Mild left renal atrophy. T11-12: Small broad-based left paracentral disc protrusion. L1-L2: Mild facet arthropathy. L2-L3: Mild facet arthropathy and generalized disc bulging. L3-L4: Mild facet arthropathy and generalized disc bulging. L4-L5: Mild facet arthropathy and generalized disc bulging. L5-S1: Mild facet arthropathy. Small broad-based central discprotrusion. IMPRESSION: 1. Multilevel degenerative changes as above. No significant discherniation, canal or neural foraminal stenosis or nerve rootcompression. 2. Mild left renal atrophy. POS - [id number] Tima Berrios MD IMG MR XSPECIALTY Final Resu lt documented in this encounter Visit Diagnoses Diagnosis Lumbar radiculopathy- Primary Thoracic or lumbosacral neuritis or radiculitis, unspecified Low back pain, unspecified back pain laterality, unspecified chronicity, unspecified whether sciatica present Lumbar radiculopathy Thoracic or lumbosacral neuritis or radiculitis, unspecified Low back pain, unspecified back pain laterality, unspecified chronicity, unspecified whether sciatica present documented in this encounter Care Teams Party Plan Salesperson Relationship Specialty Start Date End Date Camila Pang NP [address] [place] [address] [address] [email or web address] PCP - General Family Medicine 10/12/18 08/02/19 Connie Gannon PA [address] [place] [address] [email or web address] PCP - General 08/03/19 08/28/21 Adali Gutierrez MD [address] [place] [address] [email or web address] PCP - General Family Medicine 08/29/21 12/16/22 Sonia Mera PA [address] [place] [address] [place] [address] PCP - General Physician Mold Mover 12/17/22 Eboni Anaya NP [address] [place] [address] Historical LMR Provider 01/13/17 2 Rupa Bee MD [address] [facility], [address] [place] [address] [email or web address] Historical LMR Provider 01/13/17 Scott Goodwin DO [address] [place] [address] Historical LMR Provider 01/13/17 Gretel Johnson, BAKARI [address] [place] [address] Historical LMR Provider 01/13/17 2 Heatehr Perez DO [address] [place] [address] Historical LMR Provider 01/13/17 2 Elsy Garrido NP [address] [place] [address] Historical LMR Provider 01/13/17 2 Vaughn Watson MD [address] [place] [address] Historical LMR Provider 01/13/17 2 Tima Cuello MD [address] [place] [address], [address] [place] [address] Insurance Assigned Provider Internal Medicine 08/03/19 documented as of this encounter Additional Source Comments The information contained in this document represents components of the legal health record. It is not the complete legal health record.[facility]
--- OUTSIDE RECORDS SUMMARY | 2025-01-19 06:55 | XMS_ITS | Encounter Summary ---
Author Organization [facility] Address [address] [facility] [address] [place] [address] Phone Care Team Providers Care Electric Motorman Name Role Phone Eboni Anaya PRESCHOOL DIRECTOR Unavailable [phone] Rupa Bee MD Unavailable [phone] Scott Goodwin DO Unavailable [phone] Gretel Johnson PRESCHOOL DIRECTOR Unavailable [phone] Heather Perez DO Unavailable [phone] Elsy Garrido PRESCHOOL DIRECTOR Unavailable [phone] Vaughn Watson MD Unavailable [phone] Camila Pang NP Primary Care Provider Connie Gannon Primary Care Provide r Tima Cuello MD Unavailable [phone] Adali Gutierrez MD Primary Care Provid er Sonia Mera Primary Care Provider [phone] Encounter Details Date Type Department Care Team (Late st Contact Info) Description 01/02/2019 Procedure Pass [facility], [address] [place] [address] Social History Tobacco Use Types Packs/Day Years [...] AM EDT documented as of this encounter Last Filed Vital Signs Vital Sign Reading Time Taken Comments Blood Pressure - - Pulse - - Temperature - - Respiratory Rate - - Oxygen Saturation - - Inhaled Oxygen Concentration - - Weight 70.3 kg (155 lb) 01/05/2019 6:04 PM EDT Height 170.2 cm (5' 7 ) 01/05/2019 6:04 PM EDT Body Mass Index 24.28 01/05/2019 6:04 PM EDT documented in this encounter Plan of Treatment Not on file documented as of this encounter Visit Diagnoses Not on filedocumented in this encounter Care Teams Electric Motorman Relationship Specialty Start Date End Date Camila Pang NP [address] [place] [address] [email or web address] PCP - General Family Medicine 10/12/18 08/02/19 Connie Gannon PA [address] [place] [address] [email or web address] PCP - General 08/03/19 08/28/21 Adali Gutierrez MD [address] [address] [email or web address] PCP - General Family Medicine 08/29/21 12/16/22 Sonia Mera PA [address] [place] [address] [place] [address] PCP - General Physician Track Inspector 12/17/22 Eboni Anaya NP [address] [facility] [address] [place] [address] Historical LMR Provider 01/13/17 2 Rupa Bee MD [address] [place] [address], [address] [place] [address] Historical LMR Provider 01/13/17 Scott Goodwin DO [address] [place] [address] Historical LMR Provider 01/13/17 Gretel Johnson, BAKARI [address] [place] [address] Historical LMR Provider 01/13/17 2 Heather Perez DO [address] [place] [address] Historical LMR Provider 01/13/17 2 Elsy Garrido NP [address] [place] [address] Historical LMR Provider 01/13/17 2 Vaughn Watson MD [address] [place] [address] Historical LMR Provider 01/13/17 2 Tima Cuello MD [address] [place] [address], [address] [place] [address] Insurance Assigned Provider Internal Medicine 08/03/19 documented as of this encounter Additional Source Comments The information contained in this document represents components of the legal health record. It is not the complete legal health record.[facility]
--- OUTSIDE RECORDS SUMMARY | 2025-01-19 06:55 | XMS_ITS | Clinical Summary ---
Author Organization [facility] Address [address] [facility] [address] [place] [phone] Phone Care Team Providers Care Roll Up Operator Name Role Phone Rupa Bee MD Unavailable [phone] Tima Cuello MD Unavailable Sonia Mera Primary Care Provider [phone] Allergies Active Allergy Reactions Criticality Noted Date Comments Milk 03/13/2019 INFLAMMATION Other Unknown,Rash Low 07/11/2014 [facility] Allergy Remediation Penicillin Rash Low 07/11/2014 Adhesive 07/18/2021 Other reaction(s): redness, blisters Medications PSEUDOEPHEDRINE HCL (SUDAFED ORAL) A ctive acetaminophen (TYLENOL) 650 MG CR tablet Take 2,000 mg by mouth daily. Active diphenhydrAMINE (BENADRYL) 25 mg tablet Take 50 mg by mouth nightly at bedtime as needed for sleep. Active ibuprofen (ADVIL,MOTRIN) 200 MG tablet Take 800 mg by mouth every 6 (six) hours as needed for pain (specific location in comments). Active cholecalciferol (VITAMIN D3) 2,000 unit tablet Take 1,000 Units by mouth daily. Active loratadine 10 mg Cap 11/05/19 21 Active magnesium amino acid chelate 100 mg Tab Active caffeine 200 mg Tab Take 100 mg by mouth daily. 12/25/19 21 Active cyanocobalamin, vitamin B-12, (VITAMIN B-12 ORAL) 12 mcg. 12/25/19 21 Active albuterol 90 mcg/actuation inhalerIndications :Mild intermittent asthma without complication Inhale 2 puffs into the lungs every 4 (four) hours as needed for wheezing or shortness of breath/dyspnea. 8 g 5 01/17/20 22 Active LORazepam (ATIVAN) 0.5 MG tabletIndications: Mixed anxiety and depressive disorder Take 1 tablet (0.5 mg total) by mouth daily as needed for anxiety (insomnia). 90 tablet 01/17/20 22 Active butalbital-acetami nophen-caffeine (FIORICET, ESGIC) 50-325-40 mg per tabletIndications: Chronic tension-type headache, not intractable Take 1 tablet by mouth every 6 (six) hours as needed for headache. 20 tablet 2 01/17/20 22 Active gabapentin (NEURONTIN) 100 MG capsuleIndications :Chronic tension-type headache, not intractable Take 1 capsule (100 mg total) by mouth every evening. 90 capsule 3 01/17/20 Active EPINEPHrine 0.3 mg/0.3 mL auto-injector Inject 0.3 mL (0.3 mg total) into the muscle once as needed for anaphylaxis. 2 each 1 01/22/20 22 Active omega 1-kbl-hdg-fish oil 1,000 mg (120 mg-180 mg) Cap Take 1 capsule by mouth daily. Active meloxicam (MOBIC) 15 MG tabletIndications: Osteoarthritis of both knees, unspecified osteoarthritis type Take 1 tablet (15 mg total) by mouth daily. With food 30 tablet 10/13/19 24 Active baclofen (LIORESAL) 10 MG tablet Take by mouth. Activ e estradioL (ESTRACE) 0.01 % (0.1 mg/gram) vaginal creamIndications:C ystocele with rectocele Place 0.5 g intravaginally at night 3 times a week and then twice weekly thereafter. 42.5 g 1 07/14/19 25 Active Active Problems Problem Noted Date Diagnosed Date Osteoarthritis of both knees 10/13/2023 Overview (10/13/2023): Left knee s/p multiple arthroscopic surgeries, most recently ? 02/2021; sports injury resulting in ACL injury in her 20s Assessment & Plan (10/13/2023 3:54 PM EDT): No historical physical or serologic evidence concerning for underlying or co- morbid inflammatory arthritis. Discussed general tx strategy for knee OA including wt loss, quadriceps strengthening exercise, NSAIDs, intra-articular steroid injection, and possibly duloxetine. She declined intra-articular steroid injection today but is amenable to meloxicam trial, which can be taken in addition to her current APAP 1 gram twice daily. We discussed risks of regular long-term NSAID use as well as potential benefit of duloxetine in future. She is aware that her PCP can refill meloxicam or rx duloxetine for her in future given that neither of these is rheumatology-specific. Updated knee films deferred today (baseline NEOS films not available for my review) though findings unlikely to change mgmt. Happy to re-evaluate for any clinically significant change. Cystocele with rectocele 04/09/2022 Assessment & Plan (09/02/2023 4:47 PM EDT): Her current pessary is working well and she would like to continue with it. Assessment & Plan (05/21/2023 4:08 PM EST): The pessary is working well for her and she would like to continue with it. I think that is reasonable. Will continue to see her every 3 to 4 months. Assessment & Plan (02/16/2023 5:06 PM EST): The pessary is working quite well for her and she would like to continue with it. She was instructed to call us with any issues with the pessary. Assessment & Plan (11/17/2022 4:23 PM EDT): Pessary removed, cleaned, and replaced No evidence of vaginal erosions on exam Plan follow up pessary check in 3 months Assessment & Plan (08/19/2022 4:23 PM EDT): We refitted her with a number for short stem Gellhorn pessary without difficulty. We will see how she does with this. She is not sure if [facility] tried to contact her. I asked her to find out and if not, I will put in another referral. Assessment & Plan (07/14/2022 6:00 PM EDT): A larger #5 ring pessary with support was placed. If this pessary is expelled, we may need to consider a different type of pessary. Assessment & Plan (05/06/2022 10:22 PM EST): The natural history of urogenital prolapse was reviewed with the patient including various treatment options such as pessary or surgery. The patient is certain that she desired a pessary over surgery. A #3 ring pessary with support was placed without difficulty and she tolerated it well. Reviewed possible complications/issues with the pessary including vaginal discharge, vaginal bleeding, and her occasional urinary retention. Assessment & Plan (04/09/2022 4:54 PM EST): Exam findings reviewed. Discussed options of expectant management, PT, pessary, or surgery. Sylwia would like PT referran and will also return for pessary fitting. 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 Unable to take hormone d/t h/o breast ca. otc supplements have not been overly helpful. Using lorazepam if really needed. -trial of low dose gabapentin 100mg po qhs Mixed anxiety and depressive disorder 12/14/2019 Assessment & Plan (07/22/2021 11:46 AM EDT): Usually well controlled. Some increased stress with work recently but still using lorazepam very sparingly. masspat checked. Will refill today Assessment & Plan (12/16/2019 12:58 PM EDT): Usually well controlled. Some increased stress with work recently but still using lorazepam very sparingly. masspat checked. Will refill today Breast cyst 12/14/2019 Plantar fasciitis 12/14/2019 Assessment & Plan (12/16/2019 12:56 PM EDT): Will refer to podiatry for consult. Interested in orthotics and possibly PT if recommended. Bee sting allergy 07/31/2019 Assessment & Plan (07/22/2021 11:46 AM EDT): History of localized reaction and is now starting bee-keeping. -discussed keeping epi-pen nearby and also benadryl in the house in case of sting Assessment & Plan (12/16/2019 12:58 PM EDT): History of localized reaction and is now starting bee-keeping. -discussed keeping epi-pen nearby and also benadryl in the house in case of sting Assessment & Plan (07/31/2019 2:45 PM EDT): History of localized reaction and is now starting bee-keeping. Agree it would be good for her to have epi-pen on hand as she may become more sensitized with increased exposure -epi-pen sent to pharmacy ASCUS of cervix with negative high risk HPV 02/28 Overview (03/28/2019): 2019: ASCUS/HPV neg Plan: repeat in 3 years Assessment & Plan (07/22/2021 11:45 AM EDT): Following with [facility] women's health and on 3 year recall. Will be due for repeat pap in winter 2021. Will get scheduled with [facility] obgyn for this Assessment & Plan (07/31/2019 2:43 PM EDT): Following with [facility] women's health and on 3 year recall. Will be due for repeat pap in 2021 History of breast cancer 03/13/2019 Overview (03/13/2019): Left side, continues care at [facility] Assessment & Plan (07/22/2021 11:44 AM EDT): Continues care at [facility]. S/p left sided mastectomy. Continues with annual screening mammograms on the right at [facility]. Completed in March Assessment & Plan (12/16/2019 12:59 PM EDT): Continues care at [facility]. S/p left sided mastectomy. Continues with annual screening mammograms on the right at [facility]. Next due March Assessment & Plan (07/31/2019 2:43 PM EDT): Continues care at [facility] Asthma Overview (07/31/2019): mild Assessment & Plan (07/22/2021 11:44 AM EDT): Very well controlled with intermittent albuterol inhaler use Assessment & Plan (12/16/2019 12:57 PM EDT): Very well controlled with intermittent albuterol inhaler use Assessment & Plan (07/31/2019 2:43 PM EDT): Very well controlled but does need new albuterol inhaler. -refilled albuterol Dysplastic nevi Overview (07/31/2019): Removed from back of the arm. Following with Dermatology in [place]. Assessment & Plan (12/16/2019 12:56 PM EDT): Removed from back of the arm. Following with Dermatology in [place]. Assessment & Plan (07/31/2019 2:45 PM EDT): Removed from back of the arm. Following with Dermatology in [place]. Chronic tension-type headache, not intractable Overview (07/31/2019): Following with neurology, Dr. Berrios Assessment & Plan (07/22/2021 11:45 AM EDT): Chronic and stable. following with neurology, Dr. Berrios. -Using fioricet sparingly. Will refill today Assessment & Plan (12/16/2019 12:57 PM EDT): Following with neurology, Dr. Berrios. Using fioricet sparingly Assessment & Plan (07/31/2019 2:47 PM EDT): Following with neurology, Dr. Berrios. Using fioricet sparingly and does not need refill Resolved Problems Problem Noted Date Diagnosed Date Resolved Date Encounter for routine adult health examination with abnormal findings 12/14/201901/16 Assessment & Plan (07/22/2021 11:47 AM EDT): Pap: ASCUS/HPV- in Feb 2019. Following with [facility] and will be due for repeat later this year Mammogram: completed right mammogram in March. S/p left sided mastectomy due to DCIS. Following with [facility] Cscope: utd. Reports having normal cscope in past few years and on 10 year recall. Will request records from [facility] Labs: recently underwent labs with [facility] and has follow up scheduled with them. Immunizations: tetanus utd. 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 Recommended shingrix and she will contact pharmacy for this. Follow up annually for CPE Assessment & Plan (12/14/2019 9:21 AM EDT): Pap: ASCUS/HPV- in Feb 2019. Following with [facility] Mammogram: due for right mammogram in March. S/p left sided mastectomy due to DCIS. Following with [facility] Cscope: utd. Reports having normal cscope in past few years and on 10 year recall. Will request records from [facility] Labs: cbc/cmp/lipids/a1c/tsh and vitamin d levels ordered Immunizations: tetanus utd. 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 Recommended flu shot and shingrix and she will contact pharmacy for both Follow up annually for CPE Presence of intrauterine contraceptive device 03/13/20 19 04/09/2022 Overview (07/31/2019): Noah 2013 Immunizations Immunization Administration Dates Next Due COVID-19 (Pre-01/18) Pfizer Vaccine, Bivalent 12+ 01/26/2022 COVID-19 (Pre-01/18) Pfizer Vaccine, mRNA, PF 02/25/2021,05/03/2020,05/03/2020,04/12,04/12/2020 COVID-19 Moderna Spikevax Vaccine 12+ 01/19/2023 Hepatitis B Adult 01/14/2007 INFLUENZA, SPLIT VIRUS, TRIVALENT PF 01/01/2025 Influenza Quadrivalent Prese rvative Free IM 12/25/2022,12/12/2021 Pneumococcal polysaccharide PPSV23 11/21/2020 Tdap 01/28/2019, 9,01/03/2018,01/03 Varicella 04/05/2007,04/05/2007,03/03/2007 Family History * Patient is adopted Medical History Relation Comments Lung cancer Mother Relation Status Comments Mother Social History Tobacco Use Types Packs/Day Years Used Date Smoking Tobacco: Never Smokeless Tobacco: Never Alcohol Use Standard Drinks/Week Comments Yes 2 (1 standard drink = 0.6 oz pur e alcohol) 3 times weekly Child or Family Care Answer Date Record ed Do you have problems with on e of the following making it difficult for you to work, study, or receive health care? No 07/15/2021 Education Answer Date Recorded Are you interested in more education? Not on genevieve e 07/27/2023 Are you concerned about learning? Not on file 07/27/2023 No 07/27/2023 No 07/27/2023 Food Answer Date Recorded Within the past 6 months we worried whether our food would run out before we got money to buy more. Never True 07/15/2021 Within the past 6 months the food we bought just didn't last and we didn't have enough money to get more. Never True Residential Stability Answer Date Recor ded What is your housing situation today? I have jeison sing 07/15/2021 How many times have you move d in the past 12 months? Zero (I did not move) 07/15/2021 Paying for Meds Answer Date Recorded Do you have trouble paying for medicines? No 07/15/2021 Paying Utility Bills Answer Date Record ed Do you have trouble paying your heating or elect ricity bill? No 07/15/2021 Transportation Answer Date Recorded Has the lack of transportati on kept you from medical appointments or from getting medications? No 07/15/2021 Unemployment Answer Date Recorded Are you currently unemployed or working on a part-time or temporary basis, and looking for work? No 07/15/2021 Digital Access Answer Date Recorded No 08/20/2022 No 08/20/2022 Reliable internet access at home? Not on file 08/20/2022 Device with a working camera? Not on file Comments No Sex and Gender Information Value Date Recorded Sex Assigned at Female 07/27/2019 9:29 AM EDT Legal Sex Female 9:41 PM EDT Gender Identity Female 07/27/2019 9:29 AM EDT Sexual Orientation Straight 07/27/2019 9: 29 AM EDT Last Filed Vital Signs Vital Sign Reading Time Taken Comments Blood Pressure 124/80 07/12/2024 2:35 PM EDT Pulse 80 04/14/2024 2:29 PM EST Temperature 36.7 C (98 F) 04/14/2024 2:29 PM EST Respiratory Rate 16 04/14/2024 2:29 PM EST Oxygen Saturation 98% 04/14/2024 2:29 PM EST Inhaled Oxygen Concentration - - Weight 87.1 kg (192 lb) 07/12/2024 2:35 PM EDT Height 168.5 cm (5' 6.34 ) 07/12/2024 2:35 PM ED T Body Mass Index 30.67 07/12/2024 2:35 PM EDT Plan of Treatment Health Maintenance Due Date Last Done Comments ZOSTER VACCINES (1 of 2) 05/31/2007 COLOGUARD 2010 COLONOSCOPY 2010 COLORECTAL CANCER SCREENING 2010 FIT TEST 2010 FOBT 2010 SIGMOIDOSCOPY 2010 VIRTUAL COLONOSCOPY 2010 RSV VACCINE (1 - Risk 50-74 years 1-dose series) 2015 PNEUMOCOCCAL VACCINES (50+ years) (2 of 2 - PCV) 11/21/2021 11/21/2020 MAMMOGRAM 04/26/2022 04/26/2020 DEPRESSION SCREENING 07/15/2022 07/15/2021 COVID-19 VACCINE ( season) 2024 01/19/2023, 01/26/2022, 02/25/2021, Additional history exists PAP SMEAR 04/09/2025 04/09/2022, 02/26, 03/13/2019 SCREENING FOR DIABETES 01/18/2027 01/19/2024, 2023 LIPID PANEL 01/18/2029 01/19/2024, 12/14/2019 Adult Td,Tdap Booster 01/28/2029 01/28/2019 , 01/28/2019, 01/03/2018, Additional history exists HEPATITIS C SCREENING Completed 03/13/2019 HIV ONE-TIME SCREENING (18-65 YEARS) Completed 03/13/2019 SMOKING STATUS SCREENING (Once After 26 Yrs) Completed 07/12/2024 INFLUENZA VACCINE Completed 01/01/2025, , 12/12/2021 HEPATITIS A VACCINES Aged Out No long er eligible based on patient's age to complete this topic HIB VACCINES Aged Out No longer eligi ble based on patient's age to complete this topic MENINGOCOCCAL VACCINES (ACWY) Aged Out No longer eligible based on patient's age to complete this topic MENINGOCOCCAL VACCINES (B) Aged Out N o longer eligible based on patient's age to complete this topic Medical Devices Not on file Procedures Procedure Name Priority Date/Time Associated Diagnosis Comments LIPID PANEL Routine 01/19/2024 8:16 AM EDT Routine general medical examination at a health care facility Contact with and (suspected) exposure to arsenic PAP TEST Routine 04/09/2022 12:00 AM EST HM MAMMOGRAPHY Routine 04/26/2020 HEPATITIS C ANTIBODY, QUALITATIVE Routine 03/13/2019 9:37 AM EST Unprotected sexual intercourse from Last 3 Months or Most Recently Relevant to Health Maintenance Results * (ABNORMAL) Lipid panel (01/19/2024 8:16 AM EDT) HDL 103 mg/dL [facility] Comment: Interpretation <40 mg/dL: Low HDL cholesterol (major risk factor for CHD) Greater than or equal to 60 mg/dL: High HDL cholesterol ( negative risk factor for CHD) HDL - cholesterol is affected by a number of factors, e.g. smoking, excerise, hormones, sex and age. CHOLESTEROL 196 0 - 240 mg/dL [facility] TRIGLYCERIDES 49 30 - 160 mg/dL [facility] LDL 83 50 - 129 mg/dL [facility] Comment: LDL levels in terms of risk for coronary heart disease: <100 mg/dL: Optimal 100-129 mg/dL: Near or above optimal 130-159 mg/dL: Borderline high 160-189 mg/dL: High >190 mg/dL: Very High CARDIAC RISK RATIO 1.9(L) 3.3 - 4.4 [facility] Blood 01/19/2024 8:16 AM EDT 01/19/2024 8:21 AM EDT us Sonia TREADWELL LAB BLOOD ORDERABLES Final Result [address] [address] * Pap Test (04/09/2022 12:00 AM EST) 04/09/2022 04/10/2022 9:0 8 AM EST Narrative SEE NARRATIVE - 04/15/2022 3:45 PM EST [address] [address] [employer] W[employer] Tester: Gilda Sunshine MD [facility] Cytology Report FINAL DIAGNOSIS A. PAP SMEAR (SUREPATH) CE: SPECIMEN ADEQUACY: Satisfactory for evaluation; transformation zone present. INTERPRETATION: NEGATIVE FOR INTRAEPITHELIAL LESION OR MALIGNANCY. Reactive changes. Electronically Signed Out By: EARL Haas MD(ASCP) By his/her signature above, the pathologist listed as making the Final Diagnosis certifies that he/she has personally reviewed this case and confirmed or corrected the diagnosis. The Pap test is a screening test primarily for squamous cancers and precursors and has associated false-negative and false-positive results. New technologies such as liquid-based preparations may decrease but will not eliminate all false-negative results. Regular sampling and follow-up of unexplained clinical signs and symptoms are recommended to minimize false negative results. PROCEDURES/ADDENDA HPV Testing (Requested) Ordered Date: 04/10/2022 A. PAP SMEAR (SUREPATH) CE: Human Papilloma Virus Test NEGATIVE for high-risk Human Papilloma Virus types 16, 18, 45 and the Other high risk probe set (Includes 31, 33, 35, 39, 51, 52, 56, 58, 59, 66, 68) Note: Testing performed by [employer] On[facility]arity HR-HPV analysis. Clinical correlation is advised. This HPV test was performed at [facility], [address] [place] [address]. This test has been FDA approved for [facility] cervical cytology specimens. The accuracy and precision of this test for all other specimen sources has been verified in the Cytopathology Laboratory of the [facility] and has not been cleared or approved by the U.S. Food and Drug Administration. Clinical correlation is advised. CLINICAL HISTORY Date of Last Menstrual Period: Not Provided Menstrual History: Post Menopausal Other Clinical Conditions: Screening Pap SPECIMEN SOURCE A: PAP SMEAR (SUREPATH) CE Patient Name: SANJAY HERNANDEZ : 1965 (Age: 57) Sex: F Institution: [facility] Location: [facility] Date of Collection: 04/09/2022 Date of Reported: 04/15/2022 15:45 Results to: Rupa Bee MD Rupa Bee MD CYTOLOGY ORDERABLES Final Res ult SEE NARRATIVE * MAMMOGRAPHY FOR RESULT ENTRY ONLY (04/26/2020) Mammogram birads-2 Comment:done at [facility] Historical Provider HEALTH MAINTENANCE Final Result * Hepatitis C antibody, qualitative (03/13/2019 9:37 AM EST) HCV NON-REACTIV E NON-REACTI VE [facility] Blood 03/13/2019 9:37 AM EST 03/13/2019 9:39 AM EST Rupa Bee MD LAB BLOOD ORDERABLES Final Re sult [facility] [address] [place] [address] from Last 3 Months or Most Recently Relevant to Health Maintenance Insurance [facility] [address] [place] [address] [facility] [place] [address] [facility] [address] [place] [address] Care Teams Roll Up Operator Relationship Specialty Start Date End Date Sonia Mera PA [address] [facility] [place] [address] PCP - General Physician Tracer Bullet Section Supervisor 12/17/22 Rupa Bee MD [address] [facility] [address] [place] [address] [email or web address] Historical LMR Provider 01/13/17 Tima Cuello MD [address] [place] [address], [address] [place] [address] [email or web address] Insurance Assigned Provider Internal Medicine 08/03/19 Additional Source Comments The information contained in this document represents components of the legal health record. It is not the complete legal health record.[facility]
--- OUTSIDE RECORDS SUMMARY | 2025-01-19 06:55 | XMS_ITS | Encounter Summary ---
Author Organization [facility] Address [address] [facility] [address] [place] [address] Phone Care Team Providers Care Mild Disabilities Teacher Name Role Phone Eboni Anaya TWILL CUTTER Unavailable [phone] Rupa Bee MD Unavailable [phone] Scott Goodwin DO Unavailable [phone] Gretel Johnson NP Unavailable Heather Perez DO Unavailable [phone] Elsy Garrido TWILL CUTTER Unavailable [phone] Vaughn Watson MD Unavailable [phone] Scott Goodwin DO Primary Care Provider [phone] Camila Pang NP Primary Care Provider Connie Gannon Primary Care Provide r Tima Cuello MD Unavailable [phone] Adali Gutierrez MD Primary Care Provid er Sonia Mera Primary Care Provider [phone] Encounter Details Date Type Department Care Team (Late st Contact Info) Description 09/21/2018 Procedure Pass [facility], [address] [place] [address] Social History Tobacco Use Types Packs/Day Years [...] on filedocumented in this encounter Care Teams Mild Disabilities Teacher Relationship Specialty Start Date End Date Scott Goodwin DO [address] [place] [address] PCP - General 01/14/17 10/11/18 Camila Pang NP [address] [place] [address] [email or web address] PCP - General Family Medicine 10/12/18 08/02/19 Connie Gannon PA [address] [place] [address] [email or web address] PCP - General 08/03/19 08/28/21 Adali Gutierrez MD [address] [place] [address] [email or web address] PCP - General Family Medicine 08/29/21 12/16/22 Sonia Mera PA [address] [place] [address] PCP - General Physician Tail Worker 12/17/22 Eboni Anaya NP [address] [place] [address] Historical LMR Provider 01/13/17 2 Rupa Bee MD [address] [place] [address], [address] [place] [address] [email or web address] Historical LMR Provider 01/13/17 Scott Goodwin DO [address] [place] [address] Historical LMR Provider 01/13/17 Gretel Johnson NP [address] [place] [address] Historical LMR Provider 01/13/17 2 Heather Perez DO [address] [place] [address] Historical LMR Provider 01/13/17 2 Elsy Garrido NP [address] [place] [address] Historical LMR Provider 01/13/17 2 Vaughn Watson MD [address] [place] [address] Historical LMR Provider 01/13/17 2 Tima Cuello MD [address] [place] [address], [address] [place] [address] [email or web address] Insurance Assigned Provider Internal Medicine 08/03/19 documented as of this encounter Additional Source Comments The information contained in this document represents components of the legal health record. It is not the complete legal health record.[facility]
--- OUTSIDE RECORDS SUMMARY | 2025-01-19 06:55 | XMS_ITS | Encounter Summary ---
Author Organization [facility] Address [address] [facility] [address] [place] [address] Phone Care Team Providers Care Industrial Locomotive Operator Name Role Phone Eboni Anaya ELEVATOR EXAMINER Unavailable [phone] Rupa Bee MD Unavailable [phone] Scott Goodwin DO Unavailable [phone] Gretel Johnson NP Unavailable Heather Perez DO Unavailable [phone] Elsy Garrido ELEVATOR EXAMINER Unavailable [phone] Vaughn Watson MD Unavailable [phone] Scott Goodwin DO Primary Care Provider [phone] Camila Pang NP Primary Care Provider Connie Gannon Primary Care Provide r Tima Cuello MD Unavailable [phone] Adali Gutierrez MD Primary Care Provid er Sonia Mera Primary Care Provider [phone] Reason for Referral * MRI/CAT Scan - Closed Specialty Diagnoses / Procedures Referred By Contac t Referred To Contact Radiology Diagnoses Leg numbness Generalized headache Procedures MRI Brain Tima Berrios MD Phone: tel: fax: [email or web address] Referral ID Status Reason Start Date Expiration Date Visits Re quested Visits Authorized [id number] Closed 09/21/2018 11/20/2018 1 1 Encounter Details Date Type Department Care Team (Latest Contact Info) Description 09/21/2018 Transcribe Orders Virtual Department [address] [place] [address] Tima Berrios MD [address] [place] [address], [address] [place] [address] [email or web address] Generalized headache (Primary Dx); Leg numbness Social History Tobacco Use Types Packs/Day Years [...] as of this encounter Results * MRI BRAIN WITH AND WITHOUT CONTRAST (10/12/2018 11:33 AM EDT) Anatomical Region Laterality Modality Head Magnetic Resonan ce 10/12/2018 12:1 2 PM EDT Impressions 10/12/2018 12:26 PM EDT 1. No white matter lesions to suggest demyelinating disease. No enhancing brain lesions to suggest metastatic disease. 2. Small amount of right mastoid effusion. POS - [id number] Narrative 10/12/2018 12:26 PM EDT EXAM: MRI BRAIN WITHOUT AND WITH INTRAVENOUS CONTRAST COMPARISON: None TECHNIQUE: Exam performed on a 1.5 Tita high-field MRI scanner. Multiple sequences were obtained prior to and following administration of intravenous contrast. The postcontrast images were obtained following intravenous administration of 13.5 cc of contrast gadolinium Dotarem. FINDINGS: Ventricles, Sulci and extra axial spaces: The ventricles and extra-axial CSF spaces are normal in size and configuration. Brain Parenchyma: The brain parenchyma is normal in morphology and signal characteristics. No restricted diffusion, hemorrhage, mass or shift of midline structures seen. No white matter lesions to suggest demyelinating disease. No enhancing brain lesions to suggest metastatic disease. Vascular: The major intracranial vessels show normal flow related signal void. Skull Base: Sellar/parasellar structures and pineal gland region are unremarkable. Low-lying cerebellar tonsils with rounded cerebellar tips do not meet criteria for Arnold-Chiari malformation. Orbits: The orbits are unremarkable. Paranasal sinuses: No significant inflammatory changes present in the paranasal sinuses. Small amount of right mastoid effusion. Left mastoid air cells are clear. Bones and soft tissues: Grossly unremarkable. Procedure Note Zhang White MD - 10/12/2018 EXAM: MRI BRAIN WITHOUT AND WITH INTRAVENOUS CONTRAST COMPARISON: None TECHNIQUE: Exam performed on a 1.5 Tita high-field MRI scanner. Multiplesequences were obtained prior to and following administration ofintravenous contrast. The postcontrast images were obtained followingintravenous administration of 13.5 cc of contrast gadolinium Dotarem. FINDINGS: Ventricles, Sulci and extra axial spaces: The ventricles and extra-axialCSF spaces are normal in size and configuration. Brain Parenchyma: The brain parenchyma is normal in morphology and signalcharacteristics. No restricted diffusion, hemorrhage, mass or shift ofmidline structures seen. No white matter lesions to suggest demyelinatingdisease. No enhancing brain lesions to suggest metastatic disease. Vascular: The major intracranial vessels show normal flow related signalvoid. Skull Base: Sellar/parasellar structures and pineal gland region areunremarkable. Low-lying cerebellar tonsils with rounded cerebellar tips donot meet criteria for Arnold-Chiari malformation. Orbits: The orbits are unremarkable. Paranasal sinuses: No significant inflammatory changes present in theparanasal sinuses. Small amount of right mastoid effusion. Left mastoidair cells are clear. Bones and soft tissues: Grossly unremarkable. IMPRESSION: 1. No white matter lesions to suggest demyelinating disease. No enhancingbrain lesions to suggest metastatic disease. 2. Small amount of right mastoid effusion. POS - [id number] Tima Berrios MD IMG MR HEAD/NECK Final Resul t documented in this encounter Visit Diagnoses Diagnosis Generalized headache- Primary Leg numbness Disturbance of skin sensation Leg numbness Disturbance of skin sensation Generalized headache documented in this encounter Care Teams Industrial Locomotive Operator Relationship Specialty Start Date End Date Scott Goodwin DO [address] [place] [address] PCP - General 01/14/17 10/11/18 Camila Pang NP [address] [place] [address] [email or web address] PCP - General Family Medicine 10/12/18 08/02/19 Connie Gannon PA [address] [place] [address] [email or web address] PCP - General 08/03/19 08/28/21 Adali Gutierrez MD [address] [address] [email or web address] PCP - General Family Medicine 08/29/21 12/16/22 Sonia Mera PA [address] [facility] [place] [address] PCP - General Physician Pricing Coordinator 12/17/22 Eboni Anaya NP [address] [place] [address] Historical LMR Provider 01/13/17 2 Rupa Bee MD [address] [facility], [address] [place] [address] [email or web address] Historical LMR Provider 01/13/17 Scott Goodwin DO [address] [place] [address] Historical LMR Provider 01/13/17 Gretel Johnson, BAKARI [address] [place] [address] Historical LMR Provider 01/13/17 2 Heather Perez DO [address] [place] [address] Historical LMR Provider 01/13/17 2 Elsy Garrido NP [address] [place] [address] Historical LMR Provider 01/13/17 2 Vaughn Watson MD [address] [place] [address] Historical LMR Provider 01/13/17 2 Tima Cuello MD [address] [place] [address], [address] [place] [address] [email or web address] Insurance Assigned Provider Internal Medicine 08/03/19 documented as of this encounter Additional Source Comments The information contained in this document represents components of the legal health record. It is not the complete legal health record.[facility]
--- OUTSIDE RECORDS SUMMARY | 2025-01-19 06:55 | XMS_ITS | Encounter Summary ---
Author Organization [facility] Address [address] [facility] [address] [place] [address] Phone Care Team Providers Care Assistant Golf Course Superintendent Name Role Phone Eboni Anaya HUMAN DEVELOPMENT PROFESSOR Unavailable [phone] Rupa Bee MD Unavailable [phone] Scott Goodwin DO Unavailable [phone] Gretel Johnson NP Unavailable Heather Perez DO Unavailable [phone] Elsy Garrido HUMAN DEVELOPMENT PROFESSOR Unavailable [phone] Vaughn Watson MD Unavailable [phone] Scott Goodwin DO Primary Care Provider [phone] Camila Pang NP Primary Care Provider Connie Gannon Primary Care Provide r Tima Cuello MD Unavailable [phone] Adali Gutierrez MD Primary Care Provid er Sonia Mera Primary Care Provider [phone] Encounter Details Date Type Department Care Team (Late st Contact Info) Description 05/05/2018 Procedure Pass [facility], [address] [address] Social History Tobacco Use Types Packs/Day Years [...] on filedocumented in this encounter Care Teams Assistant Golf Course Superintendent Relationship Specialty Start Date End Date Scott Goodwin DO [address] [place] [address] PCP - General 01/14/17 10/11/18 Camila Pang NP [address] [place] [address] [email or web address] PCP - General Family Medicine 10/12/18 08/02/19 Connie Gannon PA [address] [place] [address] [email or web address] PCP - General 08/03/19 08/28/21 Adali Gutierrez MD [address] [place] [address] [email or web address] PCP - General Family Medicine 08/29/21 12/16/22 Sonia Mera PA [address] [place] [address] PCP - General Physician Hired Help 12/17/22 Eboni Anaya NP [address] [place] [address] Historical LMR Provider 01/13/17 2 Rupa Bee MD [address] [place] [address], [address] [place] [address] Historical LMR Provider 01/13/17 Scott Goodwin DO [address] [place] [address] Historical LMR Provider 01/13/17 Gretel Johnson NP [address] [place] [address] Historical LMR Provider 01/13/17 2 Heather Perez DO [address] [place] [address] Historical LMR Provider 01/13/17 2 Elsy Garrido NP [address] [place] [address] Historical LMR Provider 01/13/17 2 Vaughn Watson MD [address] [place] [address] Historical LMR Provider 01/13/17 2 Tima Cuello MD [address] [place] [address], [address] [place] [address] [email or web address] Insurance Assigned Provider Internal Medicine 08/03/19 documented as of this encounter Additional Source Comments The information contained in this document represents components of the legal health record. It is not the complete legal health record.[facility]
[2025-01-19 07:00] LABS: MANUAL DIFF FLAG NO
[2025-01-19 07:31] LABS: Hematocrit 41.9 % (37.0-47.0); Hemoglobin 13.3 g/dl (12.0-16.0); Imm Gran Abs Auto 0.03 X10*3/uL (0.00-0.03); Imm Gran Pct Auto 0.6 % (0.0-0.4); Lymphocytes Absolute Auto 2.1 X10*3/uL (1.2-4.9); Mean Corpuscular HGB Conc 31.7 g/dl (31.0-35.0); Mean Corpuscular Hemoglobin 29.2 pg (27.0-33.0); Mean Corpuscular Volume 92.1 fL (80.0-98.0); NRBC Abs Auto 0.000 X10*3/uL (0.0-0.012); NRBC Pct Auto 0.0 /100WBC (0.0-0.2); Platelet Count 259 X10*3/uL (160-400); Red Blood Count 4.55 X10*6/uL (4.20-5.50); White Blood Count 5.1 X10*3/uL (4.8-10.8)
[2025-01-19 08:14] LABS: Alanine Aminotransferase 20 U/L (0-31); Albumin Level 4.5 g/dL (3.5-5.0); Alkaline Phosphatase 80 U/L (39-117); Anion Gap 11 (12-20); Aspartate Amino Transferase 24 U/L (5-31); Blood Urea Nitrogen 19 mg/dL (9-16); Calcium 9.2 mg/dL (8.4-10.2); Carbon Dioxide 27 mmol/L (22-29); Chloride 109 mmol/L (96-108); Cholesterol 224 mg/dL (<200); Estimated Glomerular Filt Rate > 60; HDL Cholesterol 97 mg/dL (>40); Potassium 4.1 mmol/L (3.3-5.1); Sodium 143 mmol/L (135-145); Total Protein 7.1 g/dL (6.5-8.0); Triglycerides 80 mg/dL (<150)
[2025-01-19 08:31] LABS: Free T4 (Free Thyroxine) 1.00 ng/dL (0.71-1.85); Thyroid Stimulating Hormone 1.30 uIU/mL (0.32-4.0)
[2025-01-19 08:40] LABS: Folate 15.8 ng/mL (> or = 4.0); Vitamin B12 934 pg/mL (200-900)
== END 2025-01-19 06:51 | disposition home or self-care (01) ==
LOC: HO.LAB 06:50
PROVIDERS: PCP Internal Medicine; Visit Provider Physician Assistant
DX: Z00.00 Encounter for general adult medical examination without abnormal findings (principal); Z13.6 Encounter for screening for cardiovascular disorders; Z13.1 Encounter for screening for diabetes mellitus; Z13.29 Encounter for screening for other suspected endocrine disorder; Z13.21 Encounter for screening for nutritional disorder
CPT/HCPCS: 36415; 80053; 80061; 82306; 82607; 82746; 83036; 84439; 84443; 85025